=== PATIENT | female | born 1940 | race Caucasian/White ===

== ENCOUNTER → 2018-03-07 08:36 | Outpatient (CLI) | payer OTHER, SELFPAY ==
--- NOTE | 2018-03-07 | DI.US.S_ITS ---
PROCEDURE: US ABDOMEN COMPLETE INDICATIONS: ELAVATED LFTS TECHNIQUE: Real-time scanning was performed of the abdominal and retroperitoneal organs, with image documentation. COMPARISON: [facility], [place], ABDOMEN COMPLETE, 01/29/2013, 10:41. FINDINGS: Liver: The liver demonstrates normal size. The liver demonstrates generalized increased echogenicity. This decreases ultrasound sensitivity for detection of hepatic masses. Gallbladder: Removed. Biliary ducts: Intrahepatic bile ducts are non-dilated. Extrahepatic bile duct caliber measures 5 mm. Normal is 6-7 mm or less in diameter, or 10 mm or less post-cholecystectomy. Pancreas: Visualized portions of the pancreas are sonographically normal. Spleen: Spleen is normal in size and homogeneous in echotexture. Kidneys: Kidneys are normal in size and echotexture. Right kidney measures 13.5 cm long; left kidney measures 13 cm long. No hydronephrosis or nephrolithiasis. No solid masses. The renal cortex measures within normal limits for thickness. There is a complex 18 mm cyst seen involving the mid right kidney, with a mild septation. Simple appearing renal cysts are seen elsewhere. Aorta: Visualized aorta is normal in caliber at less than 3 cm. Iliacs: Proximal common iliac arteries are normal in caliber at less than 2.5 cm. IVC: Intrahepatic inferior vena cava is patent. Miscellaneous: No free abdominal fluid. IMPRESSION: Status post cholecystectomy. No biliary dilatation. The liver demonstrates increased echogenicity. This finding is nonspecific, yet it is most commonly attributed to fatty infiltration. Mildly complex 19 mm right kidney cyst, with a septation seen. If it would be helpful for clinical management decision making, please consider a dedicated renal mass protocol CT (without and with contrast) for further evaluation. Simple appearing renal cysts are seen elsewhere on both sides. Dictated by: Gus Guerrier M.D. on 03/07/2018 at 11:19 Approved by: Gus Guerrier M.D. on 03/07/2018 at 11:21
== END ==
PROVIDERS: Family Provider Internal Medicine; PCP Internal Medicine; Visit Provider Internal Medicine
DX: R79.89 Other specified abnormal findings of blood chemistry (principal); N28.1 Cyst of kidney, acquired; Z90.49 Acquired absence of other specified parts of digestive tract
CPT/HCPCS: 76700

== ENCOUNTER → 2018-03-20 07:57 | Outpatient (CLI) | payer OTHER, SELFPAY ==
--- NOTE | 2018-03-20 | DI.CT.S_ITS ---
PROCEDURE: CT ABDOMEN WO/W CON INDICATIONS: RENAL MASS TECHNIQUE: Optional 5 mm thick noncontrast images acquired from the diaphragm to the iliac crests. After the administration of intravenous contrast, 5 mm thick images again acquired from the diaphragm to the iliac crests in the arterial and urographic phases. 5 mm thick coronal and sagittal reformats were then acquired. For radiation dose reduction, the following was used: automated exposure control, adjustment of mA and/or kV according to patient size. COMPARISON: [facility], , ABDOMEN COMPLETE, 01/29/2013, 10:41. [facility], , US ABDOMEN COMPLETE, 03/07/2018, 9:05. FINDINGS: Image quality: Excellent. Lung bases: Lung bases are clear. Heart size is normal. A small hiatal hernia is incidentally noted. Genitourinary: Within the mid inferior aspect of the right kidney, there is a cyst seen that measures 21 x 14 x 16 mm. There is a thin septation seen within it, with potential enhancement. This cyst measures less than 10 Hounsfield units on each phase of imaging. At the superior pole of the right kidney anteriorly, there is a low-density lesion seen that measures 9 mm. It measures 16 Hounsfield units on precontrast imaging and on the arterial phase imaging. On the delayed images, this measures approximately 30 Hounsfield units. At the superior pole of the right kidney medially, there is a nonenhancing cyst that measures 6 Hounsfield units. The kidneys demonstrate normal sizes. On precontrast imaging, no stones are seen. There is prominence of the left renal pelvis. No hydronephrosis is seen on either side. Other solid organs: Liver is normal in size and enhancement. Diffuse fatty liver infiltration is noted. Gallbladder has been removed. Biliary system is non dilated. Pancreas enhances normally. Spleen is normal in size and enhancement. Bilateral adrenal nodules are seen, which measure 2.1 x 1.4 cm on the right and 2.1 x 1.6 cm long left. On noncontrast imaging, each of these measures less than 10 Hounsfield units. Peritoneum and bowel: Unenhanced bowel loops are normal in wall thickness and caliber. No free fluid or air. Nodes and vessels: No retroperitoneal or mesenteric adenopathy by size criteria. Aorta and inferior vena cava are normal in caliber. Bones: No suspicious bony lesions. No vertebral body compression fractures. Age-appropriate bony degenerative changes are seen. Miscellaneous: No ventral hernias. IMPRESSION: Bosniak type II cyst of the right kidney. This is considered to be a benign lesion. No additional followup is recommended. 9 mm potentially enhancing lesion involving the superior aspect of right kidney. This is felt most likely to be related to a hyperdense cyst, with artifactual enhancement. However, differential diagnosis includes an enhancing mass. A followup renal mass protocol CT (without and with contrast) is recommended in one year for further evaluation. Incidental note is made of: Small hiatal hernia Cholecystectomy Benign bilateral lipid rich adrenal adenomas Dictated by: Gus Guerrier M.D. on 03/20/2018 at 8:40 Approved by: Gus Guerrier M.D. on 03/20/2018 at 8:51
== END ==
PROVIDERS: PCP Internal Medicine; Visit Provider Internal Medicine
DX: N28.89 Other specified disorders of kidney and ureter (principal)
CPT/HCPCS: 74170; Q9967

== ENCOUNTER → 2018-08-07 14:24 | Outpatient (CLI) | payer OTHER, SELFPAY ==
--- NOTE | 2018-08-07 | DI.MG.S_ITS ---
BILATERAL DIGITAL SCREENING MAMMOGRAM 3D/2D WITH CAD: 08/07/2018 CLINICAL: Routine screening. Family history of breast cancer. Comparison is made to exams dated: 07/22/2017 mammogram, 06/29/2016 mammogram, and 06/27/2015 mammogram - [facility]. There are scattered fibroglandular elements in both breasts. Current study was also evaluated with a Computer Aided Detection (CAD) system. There is a cluster of oval low density focal asymmetries with an indistinct and circumscribed margin in the left breast at 8 o'clock anterior depth. No other significant masses, calcifications, or other findings are seen in either breast. IMPRESSION: INCOMPLETE: NEEDS ADDITIONAL IMAGING EVALUATION The cluster of oval low density focal asymmetries in the left breast is indeterminate. Mediolateral and spot compression views as well as additional views with possible ultrasound are recommended. This exam was interpreted at Station ID: [id number]. NOTE: For mammograms, a report in lay terms will be sent to the patient. Approximately 15% of breast malignancies will not be visualized mammographically. In the management of a palpable breast mass, a negative mammogram must not discourage biopsy of a clinically suspicious lesion. Electronically Signed By: Herman morley/mo:08/07/2018 16:57:32 letter sent: Additional Imaging Needed ACR BI-RADS Category 0: Incomplete 3340F
== END ==
PROVIDERS: PCP Internal Medicine; Visit Provider Internal Medicine
DX: Z12.31 Encounter for screening mammogram for malignant neoplasm of breast (principal); Z80.3 Family history of malignant neoplasm of breast
CPT/HCPCS: 77063; 77067

== ENCOUNTER → 2018-08-18 08:20 | Outpatient (CLI) | payer OTHER, SELFPAY ==
--- NOTE | 2018-08-18 | DI.MG.S_ITS ---
UNILATERAL LEFT DIGITAL DIAGNOSTIC MAMMOGRAM 3D/2D WITH ADDITIONAL VIEWS: 08/18/2018 CLINICAL: Additional evaluation requested from prior study. Family history of breast cancer. Comparison is made to exams dated: 08/07/2018 mammogram, 07/22/2017 mammogram, and 06/29/2016 mammogram - [facility]. There are scattered fibroglandular elements in left breast. Previously identified cluster of oval low density focal asymmetries with an indistinct margin in the inner left breast near 8 o'clock anterior depth on comparison screening mammograms persists with additional views, but the focal asymmetries localize both above and below the nipple extending from the upper inner through lower inner left breast on additional views. IMPRESSION: INCOMPLETE: NEEDS ADDITIONAL IMAGING EVALUATION Previously identified cluster of focal asymmetries persists with additional views. A targeted ultrasound is recommended for further evaluation, and will be performed immediately following this exam. This exam was interpreted at Station ID: [id number]. NOTE: For mammograms, a report in lay terms will be sent to the patient. Approximately 15% of breast malignancies will not be visualized mammographically. In the management of a palpable breast mass, a negative mammogram must not discourage biopsy of a clinically suspicious lesion. Electronically Signed By: Thad Guzman M.D. ecl/:08/18/2018 13:44:15 letter sent: Additional Imaging Needed ACR BI-RADS Category 0: Incomplete 3340F
--- NOTE | 2018-08-18 | DI.US.S_ITS ---
LIMITED ULTRASOUND OF LEFT BREAST: 08/18/2018 CLINICAL: Additional evaluation requested from prior study. Comparison is made to exams dated: 08/18/2018 mammogram, 08/07/2018 mammogram, 07/22/2017 mammogram, 06/29/2016 mammogram, and 06/27/2015 mammogram - [facility]. Real-time and Doppler ultrasound of the left breast 8-12 o'clock region were performed. Smith scale images of the real-time examination were reviewed. There is a 0.5 x 0.2 x 0.4 cm oval indistinct cyst with low level internal echogenic foci, posterior acoustic enhancement, and no vascularity on Doppler imaging in the left breast at 9:00 position 4 cm from the nipple. There is a 0.6 x 0.6 x 0.3 cm oval circumscribed hypoechoic mass with no vascularity on Doppler ultrasound in the left breast at 9:30 position 4 cm from the nipple. There is a 0.5 x 0.5 x 0.2 cm oval circumscribed hypoechoic cyst with low level internal echogenic foci, mild posterior acoustic enhancement, and no vascularity on Doppler imaging in the left breast at 10:00 position 5 cm from the nipple. There is a 0.4 x 0.3 x 0.2 cm oval circumscribed peripherally hypoechoic and centrally hyperechoic mass in the left breast at 10:00 position 6 cm from the nipple. This demonstrates no vascularity on Doppler imaging. There is a 0.4 x 0.2 x 0.2 cm oval indistinct hypoechoic cyst with mild posterior acoustic enhancement and no vascularity on Doppler ultrasound in the left breast at 10:00 position 6 cm from the nipple. The above-described findings appear to correlate with the findings seen on comparison screening and diagnostic mammography. IMPRESSION: PROBABLY BENIGN 1) 0.5 cm probable complicated cyst in the left breast at 9:00 position 4 cm from the nipple. 2) 0.6 cm probable lymph node or fibroadenoma in the left breast at 9:30 position 4 cm from the nipple. 3) 0.5 cm probable complicated cyst in the left breast at 10:00 position 5 cm from the nipple. 4) 0.4 cm probable lymph node in the left breast at 10:00 position 6 cm from the nipple. 5) 0.4 cm probable complicated cyst in the left breast at 10:00 position 6 cm from the nipple. 6) The above-described findings appear to correlate with the findings seen on comparison mammography, and are likely benign. A followup diagnostic mammogram and ultrasound in 6 months is recommended to demonstrate stability. The patient is advised to monitor her breasts and to return sooner for re-evaluation should she feel anything grow or change. This exam was interpreted at Station ID: [id number]. Electronically Signed By: Thad Guzman M.D. ecl/:08/18/2018 14:03:03 letter sent: Followup Recommended Ultrasound BI-RADS: 3 Probably benign
== END ==
PROVIDERS: PCP Internal Medicine; Visit Provider Internal Medicine
DX: R92.8 Other abnormal and inconclusive findings on diagnostic imaging of breast (principal); N60.02 Solitary cyst of left breast; Z80.3 Family history of malignant neoplasm of breast
CPT/HCPCS: 76642; 77065; G0279

== ENCOUNTER 2019-01-15 13:17 | Day surgery (SDC) | payer OTHER, SELFPAY ==
[2019-01-15] VITALS (7 sets, daily range): BP systolic 115–147; BP diastolic 75–90; PULSE 81–92; RESP 16–23; TEMP 36.1–36.8; O2SAT 92–95; BMI 34.1
--- NOTE | 2019-01-15 | PATH_ITS ---
[facility] Accession Number: [id number] . 01 Material submitted: . PART A: colon - POLYP AT 60 PART B: colon - POLYP AT 20 . 02 Diagnosis: A. Polyp at 60 cm: Tubular adenoma; negative for high-grade dysplasia. . B. Polyp at 20 cm: Fragments of sessile serrated adenoma. MRV/01/16/2019 . 02 Electronically signed: . Zuleyka Lares MD, Pathologist NPI- [id number] . 01 Gross description: . Part A: POLYP AT 60: Received in formalin is 1 fragment(s) of higgins, soft tissue measuring 0.3 x 0.2 x 0.2 cm which is entirely submitted and submitted entirely in 1 cassette(s) Part B: POLYP AT 20: Received in formalin are 2 fragment(s) of higgins, soft tissue measuring 0.2 x 0.2 x 0.2 cm to 0.3 x 0.2 x 0.2 cm which is entirely submitted and submitted entirely in 1 cassette(s) /DMC /DMC . 02 Pathologist provided ICD-10: K63.5 . 02 CPT . 415734, [id number] Performed at: 01 [facility] [address] [facility], [place], [place] [id number] MD Herman Gay MD Phone: [phone] Performed at: 02 [facility] [place] [address] [place], [place] [id number] MD Zoe Johnston MD Phone: [phone]
[2019-01-15] MEDS: SODIUM CHLORIDE 0.9% 1,000 ML 200 ML IV (15:26)
--- NOTE | 2019-01-15 15:33 | PM.HP.1 ---
History of Present Illness Date Patient Seen: 01/15/19 Time Patient Seen: 15:37 Chief complaint: [id number] SCREENING COLONOSCOPY Narrative: Patient is here for colonoscopy has had annual colonoscopies for almost a decade and has polyps every time. Patient History Social History household members: spouse Family & Social History Social History: household members spouse Meds Home Medications Medication Instructions Recorded Confirmed Type Aspirin Low Dose 81 mg PO DAILY 01/15/19 01/15/19 History amlodipine 10 mg PO DAILY 01/15/19 01/15/19 History cholecalciferol (vitamin D3) 2,000 unit PO DAILY 01/15/19 01/15/19 History [Vitamin D3] cyanocobalamin (vitamin B-12) 1,000 mcg PO DAILY 01/15/19 01/15/19 History [Vitamin B-12] levothyroxine 100 mcg PO DAILY 01/15/19 01/15/19 History losartan 25 mg PO DAILY 01/15/19 01/15/19 History metformin 500 mg PO TID 01/15/19 01/15/19 History sertraline 50 mg PO DAILY 01/15/19 01/15/19 History Allergies Allergy/AdvReac Type Severity Reaction Status Date / Time No Known Drug Allergies Allergy Verified 01/15/19 15:27 Review of Systems Review of Systems All systems reviewed & are unremarkable except as noted in HPI and below Exam Vital Signs (past 8 hours): - 01/15/19 15:10 Temperature 98.2 F Pulse Rate 92 H Respiratory Rate 16 Blood Pressure 147/90 H Pulse Oximetry 95 Oxygen Delivery Method Room Air Narrative Exam Narrative: The patient is alert and oriented with no complaints Lungs are clear with no rales or wheezes Heart regular rhythm no murmur Abdomen soft nontender rectal to be done at time of colonoscopy Assessment & Plan Assessment & Plan narrative: Patient with history of numerous polyps is here for repeat colonoscopy she is asymptomatic.
[2019-01-15] MEDS: MIDAZOLAM 5 MG/5 ML VIAL IV (15:49)
[2019-01-15] MEDS: fentaNYL 250 MCG/5 ML INJ IV (15:50)
--- NOTE | 2019-01-15 16:07 | PM.OP.ENDO ---
Operative Date/Time/Diagnoses Date of procedure: 01/15/19 Time of procedure: 16:08 Pre-op diagnosis: History of colon polyps Post-op diagnosis: same (Two polyps removed 1 at 20 cm 1 at 60 cm) Procedure & Clinicians Study performed: Total colonoscopy to the cecum with polypectomy x2 Same procedure as scheduled: Yes Surgeon: Alan Peter Procedure Notes SCOAP/Timeout: Was done Procedure in detail: The procedure the patient was properly identified during surgical pause. She was given a total of 5 mg of Versed and 200 micro g of fentanyl and was comfortable throughout the procedure was was very well tolerated. The flexible fiberoptic colonoscope inserted transanally to the cecum. The patient had 2 polyps identified and removed 1 at 20 cm the other at 60 cm these appear to be 5 mm hyperplastic polyps I doubt they are true adenomas. Procedures very well tolerated patient also was noted to have severe sigmoid diverticulosis without diverticulitis. Scope withdrawal time: 15 Sedation minutes: 25 Findings: polyp Specimen(s): other (Two polyps sent) Impression: Diverticulosis sigmoid colon and 2 polyps 20 cm 60 cm Recommendations: Colonscopy in 3 years
== END 2019-01-15 16:50 | disposition home or self-care (01) ==
PROVIDERS: PCP Internal Medicine; Visit Provider Surgery
PROC: 0DJD8ZZ Inspection of Lower Intestinal Tract, Via Natural or Artificial Opening Endoscopic (ICD-10-PCS; CPT 45378; principal; 2019-01-15 15:15)
DX: Z86.010 Personal history of colon polyps (principal); D12.5 Benign neoplasm of sigmoid colon; K57.30 Diverticulosis of large intestine without perforation or abscess without bleeding
CPT/HCPCS: 45380; 99152; J2250; J3010

== ENCOUNTER → 2019-02-01 12:53 | Outpatient (CLI) | payer OTHER, SELFPAY ==
--- NOTE | 2019-02-01 | DI.MG.S_ITS ---
UNILATERAL LEFT DIGITAL DIAGNOSTIC MAMMOGRAM 3D/2D: 02/01/2019 CLINICAL: Patient returns for a 6 month follow up of the left breast. Comparison is made to exams dated: 08/18/2018 mammogram, 08/07/2018 mammogram, and 07/22/2017 mammogram - [facility]. There are scattered fibroglandular elements in left breast. There is a cluster of oval low density focal asymmetries with an indistinct margin in the left breast at 8 o'clock anterior depth. This is less prominent. No other significant masses or calcifications are seen in the breast. IMPRESSION: INCOMPLETE: NEEDS ADDITIONAL IMAGING EVALUATION The cluster of oval low density focal asymmetries in the left breast is indeterminate. An ultrasound is recommended. This exam was interpreted at Station ID: [id number]. NOTE: For mammograms, a report in lay terms will be sent to the patient. Approximately 15% of breast malignancies will not be visualized mammographically. In the management of a palpable breast mass, a negative mammogram must not discourage biopsy of a clinically suspicious lesion. Electronically Signed By: Herman morley/mo:02/01/2019 14:09:05 ACR BI-RADS Category 0: Incomplete 3340F
--- NOTE | 2019-02-01 | DI.US.S_ITS ---
LIMITED ULTRASOUND OF LEFT BREAST: 02/01/2019 CLINICAL: Patient returns for a 6 month follow up of the left breast. Comparison is made to exams dated: 02/01/2019 mammogram, 08/18/2018 ultrasound, 08/18/2018 mammogram, 08/07/2018 mammogram, 07/22/2017 mammogram, and 06/29/2016 mammogram - [facility]. Color flow and real-time ultrasound of the left breast 8-11 o'clock region were performed on the areas of interest. There is 0.6 cm x 0.6 cm x 0.3 cm oval lymph node in the left breast at 9 o'clock. This oval lymph node is of mixed echogenicity with fatty hilum. This abnormality is not significantly changed and correlates with mammography findings. Color flow imaging demonstrates that there is no increase in vascularity. There also is 0.4 cm x 0.3 cm x 0.3 cm oval complicated cyst in the left breast at 10 o'clock middle depth. This oval complicated cyst is hypoechoic with a well-defined boundary and internal echoes. This abnormality is not significantly changed and correlates with mammography findings. Color flow imaging demonstrates that there is no vascularity present. The benign oval complicated cyst in the left breast at 9 o'clock anterior depth is no longer seen. The benign oval cyst in the left breast at 10 o'clock middle depth is no longer seen. The benign lymph node in the left breast at 10 o'clock is no longer seen. IMPRESSION: PROBABLY BENIGN The 0.6 cm x 0.6 cm x 0.3 cm oval lymph node in the left breast at 9 o'clock is probably benign. A follow-up ultrasound in 6 months is recommended. The 0.4 cm x 0.3 cm x 0.3 cm oval complicated cyst in the left breast at 10 o'clock middle depth is consistent with a complicated cyst and is probably benign. Follow-up mammogram and ultrasound in 6 months is recommended. A follow-up mammogram and an ultrasound in 6 months is recommended to demonstrate stability. This exam was interpreted at Station ID: [id number]. Electronically Signed By: Herman Mills M.D. ddp/:02/01/2019 16:55:24 letter sent: Followup Recommended Ultrasound BI-RADS: 3 Probably benign
== END ==
PROVIDERS: PCP Internal Medicine; Visit Provider Internal Medicine
DX: N60.02 Solitary cyst of left breast (principal)
CPT/HCPCS: 76642; 77065; G0279

== ENCOUNTER → 2019-08-14 09:35 | Outpatient (CLI) | payer OTHER, SELFPAY ==
--- NOTE | 2019-08-14 | DI.US.S_ITS ---
LIMITED ULTRASOUND OF LEFT BREAST: 08/14/2019 CLINICAL: Patient returns today to evaluate a density in the left breast. Comparison is made to exams dated: 02/01/2019 ultrasound, 02/01/2019 mammogram, 08/18/2018 ultrasound, 08/18/2018 mammogram, 08/07/2018 mammogram, and 07/22/2017 mammogram - [facility]. Color flow and real-time ultrasound of the left breast 9-10 o'clock region were performed. Smith scale images of the real-time examination were reviewed. There also is a benign 0.7 cm x 0.8 cm x 0.3 cm oval lymph node in the left breast at 9 o'clock middle depth 4 cm from the nipple. This oval lymph node is of mixed echogenicity with fatty hilum. This abnormality is not significantly changed. The benign oval complicated cyst in the left breast at 9 o'clock anterior depth is no longer seen. The benign oval cyst in the left breast at 10 o'clock middle depth is no longer seen. The benign 0.4 cm x 0.3 cm x 0.3 cm oval complicated cyst in the left breast at 10 o'clock middle depth is no longer seen. The benign lymph node in the left breast at 10 o'clock posterior depth is no longer seen. IMPRESSION: BENIGN There is no sonographic evidence of malignancy. The 0.7 cm x 0.8 cm x 0.3 cm oval lymph node in the left breast at 9 o'clock middle depth is benign. Interval resolution of other benign findings. Return to annual mammogram screening schedule is recommended. Findings and recommendations were conveyed to the patient at time of exam. This exam was interpreted at Station ID: [id number]. Electronically Signed By: Destiny castelan/:08/14/2019 11:10:40 letter sent: Normal Exam Ultrasound BI-RADS: 2 Benign
--- NOTE | 2019-08-14 | DI.MG.S_ITS ---
BILATERAL DIGITAL DIAGNOSTIC MAMMOGRAM 3D/2D: 08/14/2019 CLINICAL: Short term follow up, due bilaterally. Comparison is made to exams dated: 02/01/2019 mammogram, 08/18/2018 mammogram, 08/07/2018 mammogram, 07/22/2017 mammogram, and 06/29/2016 mammogram - [facility]. There are scattered fibroglandular elements in both breasts. The cluster of oval low density focal asymmetries with an indistinct margin in the left breast at 8 o'clock anterior depth is no longer seen. No other significant masses, calcifications, or other findings are seen in either breast. IMPRESSION: INCOMPLETE: NEEDS ADDITIONAL IMAGING EVALUATION An ultrasound is recommended to confirm resolution of the oval low density focal asymmetries in the left breast anterior depth, and to demonstrate stability of previously seen findings on ultrasound only in the left breast. This was performed immediately following this exam. This exam was interpreted at Station ID: [id number]. NOTE: For mammograms, a report in lay terms will be sent to the patient. Approximately 15% of breast malignancies will not be visualized mammographically. In the management of a palpable breast mass, a negative mammogram must not discourage biopsy of a clinically suspicious lesion. Electronically Signed By: Destiny castelan/:08/14/2019 10:59:13 ACR BI-RADS Category 0: Incomplete 3340F
== END ==
PROVIDERS: PCP Internal Medicine; Referring Provider Internal Medicine; Visit Provider Internal Medicine
DX: R92.8 Other abnormal and inconclusive findings on diagnostic imaging of breast (principal); N64.89 Other specified disorders of breast
CPT/HCPCS: 76642; 77066; G0279

== ENCOUNTER → 2024-06-27 12:38 | Outpatient (CLI) | payer OTHER, SELFPAY ==
--- NOTE | 2024-06-27 12:39 | DI.RAD.S_ITS ---
PROCEDURE: XR DEXA AXIAL SKELETON INDICATIONS: MENOPAUSAL DISORDER COMPARISON: [facility], , DEXA AXIAL SKELETON, 03/10/2015, 10:32. FINDINGS: Lumbar Spine: Bone mineral density 1.29 g/cm2, T score 2.2, previously 3.6. Left Femoral Neck: Bone mineral density 0.83 g/cm2, T score -0.2. Previously 1.6 Left Hip: Bone mineral density 1.09 g/cm2, T score 1.2, previously 2.2. Fracture Risk Calculation (when applicable): 10-year fracture risk of a major osteoporotic fracture 8.5 percent and of a hip fracture 1.3 percent. (T score greater or equal to -1.0 to: NORMAL) (T score from -1.1 to -2.4: OSTEOPENIA) (T score less than or equal to -2.5: OSTEOPOROSIS) IMPRESSION: T-scores have declined from prior imaging, though still within normal limits. Follow-up guidelines as follows: Osteoporosis: Consider a repeat DEXA and Vertebral Fracture Assessment (VFA) exam in 2 years or sooner if medically necessary, to reassess this patient's status. Osteopenia: Consider a repeat DEXA in 2-3 years to reassess this patient's status, or if there is a new clinical indication. Normal: Consider a repeat DEXA in 5 years or sooner, or if there is a new clinical indication. All treatment decisions require clinical judgment and consideration of individual patient factors, including patient preferences, comorbidities, previous drug use, risk factors not captured in the FRAX model (e.g., frailty, falls, vitamin D deficiency, increased bone turnover, interval significant decline in bone density ) and possible under- or over-estimation of fracture risk by FRAX. In addition, the NOF Guide recommends that FDA-approved medical therapies be considered in postmenopausal women and men age >= 50 years with a: * Hip or vertebral (clinical or morphometric) fracture * T-score of <=-2.5 at the spine or hip * Ten-year fracture probability by FRAX of >= 3% for hip fracture or >=20% for major osteoporotic fracture. Dictated by: Royer Paul M.D. on 06/27/2024 at 16:24 Approved by: Royer Paul M.D. on 06/27/2024 at 16:25
== END ==
PROVIDERS: PCP Internal Medicine; Referring Provider Internal Medicine; Visit Provider Internal Medicine
DX: N95.8 Other specified menopausal and perimenopausal disorders (principal); Z13.820 Encounter for screening for osteoporosis
CPT/HCPCS: 77080